=== PATIENT | male | born 1980 | race American Indian/Alaskan Native ===

== ENCOUNTER 2018-12-13 09:30 | Emergency (ER) | payer BC ==
[2018-12-13 09:35] VITALS: BP 140/86
--- NOTE | 2018-12-13 10:29 | Emergency Department Report ---
ED ENT HPI - General Chief complaint: Sore Throat Stated complaint: THROAT PAIN Time Seen by Provider: 12/13/18 10:13 Source: patient Mode of arrival: Ambulatory Limitations: No Limitations - History of Present Illness Initial comments: 38-year-old male presents to the ED with complaint of sore throat 2 days, worse on the left side. Denies fever, cough MD complaint: sore throat -: days(s) (2) Location: throat Severity: moderate Quality: sharp Consistency: constant Improves with: none Worsens with: swallowing Associated Symptoms: pain with swallowing, sore throat. denies: fever, cough - Related Data Previous Rx's Medication Instructions Recorded Last Taken Type Cyclobenzaprine [Flexeril] 10 mg PO TID PRN #30 tablet 04/15/18 Unknown Rx Menthol/Camphor [[place] 1 applicatio TP TID PRN #20 04/15/18 Unknown Rx Ointment] oint...g. Naproxen [Naprosyn TAB] 500 mg PO BID #20 tablet 04/15/18 Unknown Rx Naproxen [Naprosyn] 500 mg PO BID #20 tablet 12/13/18 Unknown Rx Allergies Allergy/AdvReac Type Severity Reaction Status Date / Time No Known Allergies Allergy Unverified 04/14/18 22:42 ED Dental HPI - General Chief complaint: Sore Throat Stated complaint: THROAT PAIN Time Seen by Provider: 12/13/18 10:13 Source: patient Mode of arrival: Ambulatory Limitations: No Limitations - Related Data Previous Rx's Medication Instructions Recorded Last Taken Type Cyclobenzaprine [Flexeril] 10 mg PO TID PRN #30 tablet 04/15/18 Unknown Rx Menthol/Camphor [[place] 1 applicatio TP TID PRN #20 04/15/18 Unknown Rx Ointment] oint...g. Naproxen [Naprosyn TAB] 500 mg PO BID #20 tablet 04/15/18 Unknown Rx Naproxen [Naprosyn] 500 mg PO BID #20 tablet 12/13/18 Unknown Rx Allergies Allergy/AdvReac Type Severity Reaction Status Date / Time No Known Allergies Allergy Unverified 04/14/18 22:42 ED Review of Systems ROS: Stated complaint: THROAT PAIN Other details as noted in HPI Comment: All other systems reviewed and negative Constitutional: denies: chills, fever ENT: throat pain. denies: ear pain Respiratory: denies: cough Gastrointestinal: denies: nausea, vomiting ED Past Medical Hx - Past Medical History Previous Medical History?: No - Surgical History Past Surgical History?: No - Social History Smoking Status: Never Smoker Substance Use Type: Marijuana - Medications Home Medications: Home Medications Medication Instructions Recorded Confirmed Last Taken Type Cyclobenzaprine [Flexeril] 10 mg PO TID PRN #30 tablet 04/15/18 Unknown Rx Menthol/Camphor [[place] 1 applicatio TP TID PRN #20 04/15/18 Unknown Rx Ointment] oint...g. Naproxen [Naprosyn TAB] 500 mg PO BID #20 tablet 04/15/18 Unknown Rx Naproxen [Naprosyn] 500 mg PO BID #20 tablet 12/13/18 Unknown Rx ED Physical Exam - General Limitations: No Limitations General appearance: alert, in no apparent distress - Head Head exam: Present: atraumatic, normocephalic - Eye Eye exam: Present: normal appearance, PERRL, EOMI - ENT ENT exam: Present: other (tonsillar swelling present) - Neck Neck exam: Present: normal inspection. Absent: lymphadenopathy - Respiratory Respiratory exam: Present: normal lung sounds bilaterally. Absent: respiratory distress - Cardiovascular Cardiovascular Exam: Present: regular rate, normal rhythm - GI/Abdominal GI/Abdominal exam: Present: soft. Absent: distended - Extremities Exam Extremities exam: Present: normal inspection - Neurological Exam Neurological exam: Present: alert, oriented X3 - Psychiatric Psychiatric exam: Present: normal affect, normal mood - Skin Skin exam: Present: warm, dry, intact, normal color ED Course Vital Signs 12/13/18 09:34 Temperature 98.3 F Pulse Rate 76 Respiratory 16 Rate Blood Pressure 140/86 O2 Sat by Pulse 99 Oximetry ED Medical Decision Making - Medical Decision Making - strep negative - vitals normal, afebrile - likely viral - toradol and decadron given - no airway compromise present - ENT f/u advised - Differential Diagnosis strep throat, viral pharyngitis Critical care attestation.: If time is entered above; I have spent that time in minutes in the direct care of this critically ill patient, excluding procedure time. ED Disposition Clinical Impression: Acute viral pharyngitis Disposition: DC- TO HOME OR SELFCARE Is pt being admited?: No Condition: Stable Instructions: Pharyngitis (ED) Prescriptions: Naproxen [Naprosyn] 500 mg PO BID #20 tablet [facility] [Primary Care Provider] - 3-5 Days YASMINE AKERS MD [Staff Physician] - 3-5 Days Time of Disposition: 11:09
[2018-12-13] MEDS ORDERED: DECADRON IM ONE (11:06)
[2018-12-13] MEDS ORDERED: TORADOL IM ONE (11:06)
== END 2018-12-13 11:45 | disposition home or self-care (01) ==
LOC: ED 09:30
DX: J02.9 Acute pharyngitis, unspecified (principal); F12.90 Cannabis use, unspecified, uncomplicated; Z79.899 Other long term (current) drug therapy
CPT/HCPCS: 87116; 87430; 96372; 99282; J1100; J1885